=== PATIENT | male | born 1995 | race Caucasian/White ===

== ENCOUNTER 2018-12-09 22:24 | Inpatient (IN) | payer BC ==
[~2018-12-09] VITALS: Ht 177.8 cm; Wt 71.7 kg
[2018-12-09 22:40] VITALS: BP 131/78
--- NOTE | 2018-12-09 22:55 | NUR ---
PT TAKEN TO BED 8
--- NOTE | 2018-12-09 23:00 | NUR ---
Dr. Walton examining patient.
--- NOTE | 2018-12-09 23:03 | NUR ---
ER MD AT BEDSIDE EVALUATING PATIENT.
--- NOTE | 2018-12-09 23:07 | NUR ---
23 Y/O MALE BIB SELF PT STATES "I THINK I HAVE LISTERIA". PT STATES HE ATE [employer] [facility] [employer] [place]. C/O 10 MUSCLE ACHES, NV, JOINT PAIN, SUBJECTIVE FEVER X 48 HOURS. FEBRILE AT 101.5. A/O X4 FOLLOWS COMMANDS; ABDOMEN HEARD ON ALL FOUR QUADRANTS. PATIENT IS IN NO DISTRESS AT THSI TIME. ERMD MADE AWARE OF STATUS. PLACED ON MONITOR AND SIDE RAILS X1 PMH-- DENIES RX-- JOANA ASTUDILLO @ [id number]
[2018-12-09] MEDS ORDERED: NACL 0.9% 1,000 ML IV SCH (23:08)
[2018-12-09] MEDS ORDERED: AMPICILLIN 1,000 MG in NACL 0.9% 50 ML IV ONE (23:10)
[2018-12-09] MEDS ORDERED: cefTRIAXone 250 MG in LIDOCAINE MPF 1% - 5 mL VIAL 0.9 ML IM ONE (23:10)
[2018-12-09] MEDS ORDERED: AZITHROMYCIN 250 MG TAB PO ONE (23:10)
[2018-12-09] MEDS ORDERED: GENTAMICIN 120 MG in DEXTROSE 5% 100 ML IV ONE (23:10)
--- NOTE | 2018-12-09 23:16 | NUR ---
X-Ray at bedside.
[2018-12-09] MEDS ORDERED: AMPICILLIN 1,000 MG VIAL ONE (23:18)
[2018-12-09 23:33] LABS: BASOPHILS % (AUTO) 0.3 % (0.0-2.0); EOSINOPHILS % (AUTO) 0.2 % (0.0-4.0); HEMATOCRIT 42.1 % (36-52); HEMOGLOBIN 14.1 g/dL (12.0-18.0); LYMPHOCYTES # (AUTO) 2.9 K/uL (2.0-11.5); LYMPHOCYTES % (AUTO) 25.8 % (20.5-51.1); MEAN CORPUSCULAR HEMOGLOBIN 30 pg (27-31); MEAN CORPUSCULAR HGB CONC 33 g/dL (33-37); MEAN CORPUSCULAR VOLUME 90.6 fL (80-94); MONOCYTES # (AUTO) 1.1 K/uL (0.8-1.0); MONOCYTES % (AUTO) 9.5 % (1.7-9.3); NEUTROPHILS # (AUTO) 7.3 K/uL (1.8-7.7); NEUTROPHILS % (AUTO) 64.2 % (42.2-75.2); PLATELET COUNT (AUTO) 145 K/uL (140-450); RED BLOOD CELL COUNT(AUTO) 4.64 MIL/uL (4.20-6.10); RED CELL DISTRIBUTION WIDTH 13.2 % (11.6-13.7); WHITE BLOOD COUNT (AUTO) 11.3 K/uL (4.8-10.8)
[2018-12-09] MEDS ORDERED: GENTAMICIN 80 MG/2 ML VIAL ONE ×2 (23:41→23:43)
[2018-12-09 23:42] LABS: APPEARANCE,URINE CLEAR (CLEAR); BILIRUBIN,URINE NEGATIVE (NEGATIVE); BLOOD, URINE NEGATIVE (NEGATIVE); COLOR,URINE YELLOW (YELLOW); LEUKOCYTE ESTERASE ,URINE TRACE (NEGATIVE); NITRITE, URINE NEGATIVE (NEGATIVE); UGLUCOSE NEGATIVE (NEGATIVE)
[2018-12-09 23:44] LABS: ANION GAP 12.8 (8-16); CREATININE 0.9 mg/dL (0.7-1.3); POTASSIUM 3.8 mmol/L (3.5-5.1)
[2018-12-09 23:50] LABS: ALBUMIN 4.1 g/dL (3.4-5.0); TOTAL BILIRUBIN 0.6 mg/dL (0.0-1.0)
[2018-12-10 00:06] LABS: RBC,URINE NONE SEEN /HPF (0-5); WBC,URINE 0 /HPF (0-5)
[2018-12-10] MEDS ORDERED: ONDANSETRON 4 MG/2 ML VIAL IVP PRN (00:50)
[2018-12-10] MEDS ORDERED: HYDROcodone/APAP 7.5/325 MG 1 TAB PO PRN (00:50)
[2018-12-10] MEDS ORDERED: ACETAMINOPHEN 325 MG TAB PO PRN (00:50)
--- NOTE | 2018-12-10 00:54 | NUR ---
PATIENT IS QUIET AND IN NO DISTRESS AT THIS TIME.
[2018-12-10 01:39] LABS: PROTHROMBIN TIME 10.1 secs (10.8-13.4)
[2018-12-10 01:42] LABS: BARBITURATE, URINE NEG. ng/ml (NEG <=200); BENZODIAZEPINE, URINE NEG. ng/mL (NEG <=200); CANNABINOID, URINE NEG. ng/mL (NEG <=50); COCAINE, URINE NEG. ng/mL (NEG <=300); OPIATE, URINE NEG. ng/mL (NEG <=2000); PHENCYCLIDINE SCREEN,URINE NEG. ng/mL (NEG <=25)
[2018-12-10 01:50] LABS: FREE T4 (FREE THYROXINE) 0.91 ng/dL (0.76-1.46); MAGNESIUM 2.3 mg/dL (1.8-2.4); PHOSPHORUS 3.5 mg/dL (2.5-4.9); THYROID STIMULATING HORMONE 1.06 uIU/mL (0.34-3.74)
--- NOTE | 2018-12-10 01:50 | NUR ---
Patient will be admitted to care of DR. WILLETT . Admited to Med/Surg. Will go to room 118. Belongings list completed. Report to SASKIA COONEY.
--- NOTE | 2018-12-10 01:55 | NUR ---
ADMITTED THIS 23 YEAR OLD MALE FROM ER PER CHRIS WITH CC OF BODY ACHES AND HEADACHE, AMBULATED TO BED WITH STEADY GAIT, ASSESSMENT DONE, AAOX4, VITAL SIGNS STABLE, TOLERABLE ACHES AT THIS TIME, ORIENTED TO ROOM AND CALL LIGHT, PLAN OF CARE DISCUSS, SAFETY MEASURES IN PLACE, CALL LIGHT WITHIN REACH.
[2018-12-10 02:00] VITALS: BP 117/63
[2018-12-10] MEDS ORDERED: EMTR1TAB12 PO (02:13)
[2018-12-10] MEDS: NACL 0.9% 1,000 ML IV SCH ×2 (02:29→10:49)
--- NOTE | 2018-12-10 02:30 | NUR ---
IVF OF NS AT 100ML STARTED, WITH REGULAR DIET (VEGETARIAN), CRACKERS AND JUICE PROVIDED, TOLERATED WELL, NO N/V NOTED, ALL NEEDS ATTENDED.
[2018-12-10] MEDS ORDERED: AMPICILLIN 2,000 MG VIAL ONE (03:30)
[2018-12-10] MEDS ORDERED: TEMAZEPAM 15 MG CAP PO SCH (03:45)
[2018-12-10] MEDS: AMPICILLIN 2,000 MG in NACL 0.9% 100 ML IV SCH ×2 (04:00→08:53)
--- NOTE | 2018-12-10 05:59 | NUR ---
PT STATED HAD 2 EPISODES OF WATERY STOOL, DR HERNANDEZ MADE AWARE, STATED TO WATCH HIM FOR NOW, WILL ENDORSE.
--- NOTE | 2018-12-10 06:40 | NUR ---
WITH ORDER TO COLLECT STOOL FOR C-DIFF AND CULTURE, INSTRUCTED PT TO COLLECT SPECIMEN, CONTAINED IN THE BR, WILL ENDORSE.
[2018-12-10 07:22] LABS: BASOPHILS % (AUTO) 0.3 % (0.0-2.0); EOSINOPHILS # (AUTO) 0.1 K/uL (0-0.4); EOSINOPHILS % (AUTO) 0.5 % (0.0-4.0); HEMOGLOBIN 13.6 g/dL (12.0-18.0); LYMPHOCYTES # (AUTO) 2.8 K/uL (2.0-11.5); LYMPHOCYTES % (AUTO) 26.8 % (20.5-51.1); MEAN CORPUSCULAR HEMOGLOBIN 30 pg (27-31); MEAN CORPUSCULAR HGB CONC 33 g/dL (33-37); MEAN CORPUSCULAR VOLUME 91.4 fL (80-94); MONOCYTES % (AUTO) 9.9 % (1.7-9.3); NEUTROPHILS # (AUTO) 6.5 K/uL (1.8-7.7); NEUTROPHILS % (AUTO) 62.5 % (42.2-75.2); PLATELET COUNT (AUTO) 137 K/uL (140-450); RED BLOOD CELL COUNT(AUTO) 4.48 MIL/uL (4.20-6.10); RED CELL DISTRIBUTION WIDTH 13.4 % (11.6-13.7); WHITE BLOOD COUNT (AUTO) 10.4 K/uL (4.8-10.8)
--- NOTE | 2018-12-10 07:38 | NUR ---
PT SLEEPING, NO SIGNS OF DISTRESS, REPORT GIVEN TO RN VARINDER FOR CONTINUITY OF CARE.
--- NOTE | 2018-12-10 07:39 | NUR ---
RECEIVED ENDORSEMENT FROM ACETYLENE CUTTER NURSE. PATIENT IS AAOX4, FRENCH SPEAKING. RESPIRATIONS ARE EVEN AND UNLABORED ON ROOM AIR. PATIENT DENIES ANY PAIN AT THIS TIME. LEFT AC 20G IV INTACT, PATENT AND INFUSING IVF. PLAN OF CARE WAS REVIEWED WITH PATIENT, PATIENT VERBALIZED UNDERSTANDING. SAFETY MEASURES IN PLACE, CALL LIGHT WITHIN REACH.
[2018-12-10 07:52] LABS: ANION GAP 12.6 (8-16); CARBON DIOXIDE 29.5 mmol/L (21-32); CREATININE 0.7 mg/dL (0.7-1.3); POTASSIUM 4.1 mmol/L (3.5-5.1)
[2018-12-10 08:00] VITALS: BP 102/64
--- NOTE | 2018-12-10 08:25 | NUR ---
PATIENT HAS BEEN SCREENED AND CATEGORIZED MODERATE NUTRITION RISK. PATIENT WILL BE SEEN WITHIN 3-5 DAYS OF ADMISSION. 12/12/18 12/14/[address]
--- NOTE | 2018-12-10 08:35 | NUR ---
ADMINISTERED SCHEDULED MEDICATIONS. PATIENT TOLERATED WELL. NO OTHER NEEDS AT THIS TIME.
[2018-12-10] MEDS ORDERED: EMTRICITABINE/TENOFOVIR 200-300MG 1 TAB PO SCH (09:00)
[2018-12-10] MEDS ORDERED: DOCUSATE SODIUM 100 MG GELCAP PO SCH (09:00)
[2018-12-10] MEDS ORDERED: LACTOBACILLUS RHAMNOSUS GG 1 EACH CAP PO SCH (09:00)
--- NOTE | 2018-12-10 10:45 | NUR ---
PATIENT REQUESTED TO GO AMA. SPOKE WITH PATIENT. PATIENT TO LEAVE AMA AFTER MONO TEST.
--- NOTE | 2018-12-10 11:27 | NUR ---
PATIENT SIGNED AMA FORM. NO OTHER NEEDS AT THIS TIME.
[2018-12-10] MEDS ORDERED: TEMAZEPAM 15 MG CAP PO PRN (21:00)
[2018-12-11 21:05] LABS: HEPATITIS A ANTIBODY IGM NEGATIVE (NEGATIVE)
[2018-12-11 21:06] LABS: HEPATITIS B SURFACE ANTIBODY REACTIVE (NONREACTIVE)
[2018-12-11 21:07] LABS: HEPATITIS B CORE AB TOTAL NEGATIVE (NEGATIVE); HEPATITIS B SURFACE ANTIGEN NEGATIVE (NEGATIVE)
== END 2018-12-10 11:35 | disposition left against medical advice (07) | DRG 868 ==
LOC: MED 22:24 → MTU 12-10 00:26
PROVIDERS: ADMIT General Practice; ATTEND General Practice
DX: A32.9 Listeriosis, unspecified (principal); R65.10 Systemic inflammatory response syndrome (SIRS) of non-infectious origin without acute organ dysfunction; A54.01 Gonococcal cystitis and urethritis, unspecified; Z53.21 Procedure and treatment not carried out due to patient leaving prior to being seen by health care provider
CPT/HCPCS: 36415; 71045; 80048; 80053; 80305; 81001; 82150; 83036; 83605; 83690; 83735; 84100; 84439; 84443; 85025; 85610; 85730; 86308; 86592; 86702; 86704; 86706; 86708; 86709; 86803; 87040; 87045; 87081; 87086; 87340; 87804; 96365; 96366; 96372; 99285; J0290; J0696; J1580; J2001; J7030; Q0092